=== PATIENT | female | born 1995 ===

== ENCOUNTER 2018-11-16 08:07 | Outpatient (CLI) | payer BC ==
--- NOTE | 2018-11-16 09:35 | ULT ---
LEFT BREAST ULTRASOUND LIMITED: HISTORY: Left breast lump, palpable finding at 6 o'clock. COMPARISON: None. FINDINGS: The region around the 6 o'clock position with attenuation to the area of palpable concern is evaluate d. There is some asymmetric echogenic glandular tissue. No solid or cystic mass. IMPRESSION: No mass or cyst or other significant abnormal ultrasound finding to account for a palpable finding at 6 o'clock. If the patient develops any new palpable finding, followup ultrasound at that time might be considere d. Consider annual screening study at age 35-40 dependent upon risk factors. POS: OFF
== END 2018-11-16 08:08 | disposition home or self-care (01) ==
LOC: BICULT 08:07
PROVIDERS: ATTEND Obstetrics & Gynecology
DX: N63.23 Unspecified lump in the left breast, lower outer quadrant (principal)